=== PATIENT | female | born 1975 | race Caucasian/White ===

== ENCOUNTER → 2019-08-18 12:14 | Outpatient (REF) | payer OTHER, SELFPAY ==
--- NOTE | 2019-08-18 11:45 | PAPFT_PTH ---
PATIENT: Paty Heck LOC: [facility] U#:[id number] AGE/SX: 50/F ROOM: RE08/18/[address]: Francie Beasley NP : 1975 BED: DIS: SPEC #: [id number] RECD: 08/18/19 12:52 STATUS: DANNI SILVA #: [id number] NICHOLE: 08/18/19 11:[address]: Francie Beasley NP DEPT: [facility] Cytology RECD BY: Zakia Thompson ENTERED: 08/18/19 12:54 SP TYPE: PAPFT OTHR DR: Quyen Vieira Tissues: 1 - CX/ENDOCX FOR PAP SMEARS Procedures: PAP THIN PREP/UVM Screening HPV DNA PROBE Comments: [id number] (CHLAMYDIA/GC)
[2019-08-19 15:07] LABS: Chlamydia Result Negative (Negative); GC Result Negative (Negative)
== END ==
LOC: LBN 12:14
PROVIDERS: PCP Nurse Practitioner Family; Visit Provider Nurse Practitioner Women's Health
DX: Z11.3 Encounter for screening for infections with a predominantly sexual mode of transmission (principal); Z12.4 Encounter for screening for malignant neoplasm of cervix
CPT/HCPCS: 87491; 87591; 88142; 87624

== ENCOUNTER 2019-08-25 02:33 | Outpatient (CLI) | payer OTHER, SELFPAY ==
--- NOTE | 2019-08-25 12:49 | DI.US_ITS ---
EXAM: US PELVIS AND TRANSVAGINAL CLINICAL HISTORY: Dyspareunia,N94.10 TECHNIQUE: Ultrasound performed using standard protocol. Transabdominal and transvaginal exams wer e performed. COMPARISON: No exams were available for comparison FINDINGS: The uterus measures 9.5 x 5.9 x 6 5 cm. The endometrial stripe measures 9 millimeters in thickness. The myometrium appears heterogeneous. No focal fibroids are identified. A 1.9 centimeter corpus lut eum cyst is seen on the left ovary. The kidneys appear normal. There is no evidence of hydronephrosi s. IMPRESSION: Mildly enlarged heterogeneous uterus. The ovaries appear within normal limits.
== END 2019-08-25 02:53 ==
PROVIDERS: PCP Nurse Practitioner Family; Visit Provider Nurse Practitioner Women's Health
DX: N94.10 Unspecified dyspareunia (principal); N85.2 Hypertrophy of uterus
CPT/HCPCS: 76830; 76856

== ENCOUNTER 2021-09-13 15:44 | Outpatient (REF) | payer OTHER, SELFPAY ==
[2021-09-13 15:20] LABS: HCT 42.2 % (36.0-46.0); HGB 14.1 g/dL (11.2-15.7); MCH 29.7 pg (27.0-33.0); MCHC 33.4 % (32.0-36.0); MCV 88.8 fL (80-95); MPV 9.7 fL (8.0-11.0); Platelet Count 430 10^3/uL (130-400); RBC 4.75 10^6/uL (3.93-5.22); RDW 13.8 % (11.7-14.6); RDW-SD 45.1 fL; WBC 8.85 10^3/uL (4.4-10.8)
[2021-09-13 15:40] LABS: TSH (W/Ref FT4) 2.15 uIU/mL (0.36-3.74)
[2021-09-13 16:02] LABS: Iron 112 ug/dL (50-170); Total Iron Binding Capacity 405 ug/dL (250-450); Transferrin Sat 28 % (15-50)
== END 2021-09-13 15:45 | disposition home or self-care (01) ==
LOC: NCHCN 15:44
PROVIDERS: PCP Nurse Practitioner Family; Visit Provider Nurse Practitioner Family
DX: R53.83 Other fatigue (principal)
CPT/HCPCS: 85027; 83540; 83550; 84443

== ENCOUNTER 2021-11-09 15:39 | Outpatient (REF) | payer OTHER, SELFPAY ==
--- NOTE | 2021-11-09 14:30 | PAPFT_PTH ---
PATIENT: Paty Heck LOC: [facility] U#:[id number] AGE/SX: 46/F ROOM: RE11/09/[address]: Quyen Vieira : 1975 BED: DIS: 11/09/2021 SPEC #: [id number] RECD: 11/10/21 12:49 STATUS: DANNI REGenaro #: [id number] NICHOLE: 11/09/21 14:[address]: Quyen Vieira DEPT: [facility] Cytology RECD BY: Zakia Thompson Tissues: 1 - CX/ENDOCX FOR PAP SMEARS Procedures: PAP THIN PREP/UVM Screening HPV DNA PROBE Comments: [id number] (CHLAMYDIA/GC)
[2021-11-09 20:49] LABS: Platelet Count 419 10^3/uL (130-400)
[2021-11-09 20:53] LABS: ESR 9 mm/hr (0-20)
[2021-11-09 21:15] LABS: Anion Gap 8.3 mmol/L (3-11); BUN 10 mg/dL (7-18); C-Reactive Protein 0.15 mg/dL (0.0-0.3); CO2 27.7 mmol/L (21.0-32.0); Calcium 8.9 mg/dL (8.5-10.1); Chloride 104 mmol/L (98-107); Estimated GFR 59.69 (mL/min/1.73m2); Glucose 81 mg/dL (74-106); Potassium 3.9 mmol/L (3.5-5.1); Sodium 140 mmol/L (136-145)
[2021-11-09 21:37] LABS: Vitamin D 25 Total 34.7 ng/mL (30-100)
[2021-11-10 17:03] LABS: Rheumatoid Factor <8.6 IU/mL (<12.0)
[2021-11-13 14:18] LABS: Chlamydia Result Negative (Negative); GC Result Negative (Negative)
[2021-11-13 14:29] LABS: ANA Interpretation Negative (Negative)
== END 2021-11-09 15:40 | disposition home or self-care (01) ==
LOC: NCHCN 15:39
PROVIDERS: PCP Nurse Practitioner Family; Visit Provider Nurse Practitioner Family
DX: R53.83 Other fatigue (principal); M79.10 Myalgia, unspecified site; D47.3 Essential (hemorrhagic) thrombocythemia; Z12.4 Encounter for screening for malignant neoplasm of cervix; Z11.51 Encounter for screening for human papillomavirus (HPV); Z11.3 Encounter for screening for infections with a predominantly sexual mode of transmission
CPT/HCPCS: 80048; 82306; 85652; 87491; 87591; 88142; 85049; 86038; 86140; 86431; 87624